=== PATIENT | female | born 2000 | race Caucasian/White ===

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

== ENCOUNTER 2024-01-29 19:48 | Emergency (ER) | payer OTHER ==
[~2024-01-29] VITALS: Ht 149.9 cm; Wt 72.6 kg
[2024-01-29 20:19] VITALS: BP 121/81; PULSE 79; RESP 16; TEMP 98.2; O2SAT 98
[2024-01-29 22:09] LABS: BILIRUBIN,URINE NEGATIVE (NEGATIVE); BLOOD, URINE 3+ (NEGATIVE); COLOR,URINE YELLOW (YELLOW); LEUKOCYTE ESTERASE ,URINE TRACE (NEGATIVE); NITRITE, URINE NEGATIVE (NEGATIVE); PROTEIN,URINE 2+ (NEGATIVE); UGLUCOSE 3+ (NEGATIVE); UROBILINOGEN,URINE 0.2 EU/dL (0.2 - 1)
[2024-01-29 22:13] LABS: APPEARANCE,URINE SLIGHTLY CLOUDY (CLEAR)
[2024-01-29 22:15] LABS: RBC,URINE 20-50 /HPF (0-5); WBC,URINE 0-5 /HPF (0-5)
[2024-01-29 22:23] LABS: BACTERIA,URINE 2+ /HPF (None Seen); MUCUS,URINE None Seen /LPF (None Seen); SQUAMOUS EPITHELIAL CELL,UR 0-3 (FEW) /LPF (0-3 (FEW))
[2024-01-29] MEDS ORDERED: PYR100 PO (23:15)
[2024-01-29] MEDS ORDERED: CEPH-588 PO (23:15)
[2024-01-29] MEDS ORDERED: NAPR-1704 PO (23:15)
[2024-01-29] MEDS ORDERED: cefTRIAXone 1,000 MG VIAL ONE (23:33)
[2024-01-29] MEDS ORDERED: LIDOCAINE MPF 1% 5 ML ONE (23:35)
[2024-01-29] MEDS: HYDROcodone/APAP 5/325 MG 1 TAB TAB PO ONE (23:42)
[2024-01-29] MEDS: cefTRIAXone 1,000 MG in LIDOCAINE MPF 1% 2.1 ML IM ONE (23:42)
[2024-01-29] MEDS: PHENAZOPYRIDINE 100 MG TAB PO ONE (23:43)
[2024-01-29 23:46] VITALS: BP 127/83; PULSE 76; RESP 18; O2SAT 98
== END 2024-01-29 23:53 | disposition home or self-care (01) ==
LOC: MED 19:48
DX: N39.0 Urinary tract infection, site not specified (principal); Z79.899 Other long term (current) drug therapy
CPT/HCPCS: 81001; 81025; 87086; 96372; 99283; J0696; J2001